=== PATIENT | female | born 1985 | race Caucasian/White ===

== ENCOUNTER 2017-03-24 11:56 | Emergency (ER) | payer OTHER ==
--- NOTE | 2017-03-24 12:18 | UC ---
Respiratory Complaint HPI - HPI Summary HPI Summary: 31 year old female with cough. Headache, bilateral ear pain, "yellow" nasal congestion, PND, "swollen and red" throat, painful swallowing, mostly nonproductive cough, subjective shortness of breath, right upper back "feels hollow and achy", decreased appetite, myalgias, chills, and tired worsening over fifteen days. Patient finished a Z-Gerald for an URI about nine days ago without improvement. No known fever. 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 PCP Elzbieta Gutierrez. [ End ] - History of Current Complaint Stated Complaint: UPPER RESPIRATORY Time Seen by Provider: 03/24/17 12:17 Hx Obtained From: Patient Hx Last Menstrual Period: 04/14/16 Onset/Duration: Gradual Onset Timing: Constant Severity Initially: Mild Severity Currently: Moderate Character: Cough: Productive Associated Signs And Symptoms: Positive: Negative - Risk Factors Pulmonary Embolism Risk Factors: Negative - Allergies/Home Medications Allergies/Adverse Reactions: Allergies Allergy/AdvReac Type Severity Reaction Status Date / Time Amoxicillin Allergy Severe Hives Verified 03/24/17 12:18 Latex Allergy Severe Hives Verified 03/24/17 12:18 Celecoxib [From Celebrex] Allergy Hives Verified 03/24/17 12:18 Cyclobenzaprine Allergy Hives Verified 03/24/17 12:19 [From Flexeril] Home Medications: Home Medications busPIRone TAB* [Buspar TAB*] 10 mg PO TID 03/24/17 [History Confirmed 03/24/17] PMH/Surg Hx/FS Hx/Imm Hx Previously Healthy: Yes - Surgical History Surgical History: None Surgery Procedure, Year, and Place: Spinal block 07/2014 - Family History Known Family History: Positive: None Negative: Blood Disorder - Social History Occupation: Employed Full-time Lives: With Family Alcohol Use: None Substance Use Type: None Smoking Status (MU): Former Smoker Type: Cigarettes Amount Used/How Often: 3 CIGS A DAY Length of Time of Smoking/Using Tobacco: 2 yrs Have You Smoked in the Last Year: Yes When Did the Patient Quit Smoking/Using Tobacco: 04/09 Review of Systems Constitutional: Fatigue ENT: Sore Throat, Ear Ache, Nasal Discharge, Sinus Congestion, Sinus Pain/ Tenderness Respiratory: Shortness Of Breath, Cough All Other Systems Reviewed And Are Negative: Yes Physical Exam Triage Information Reviewed: Yes Appearance: Well-Appearing, No Pain Distress, Well-Nourished Vital Signs Reviewed: Yes Eye Exam: Normal ENT Exam: Normal Dental Exam: Normal Neck exam: Normal Neck: Positive: 1 Respiratory Exam: Normal Respiratory: Positive: Chest non-tender, Lungs clear, Normal breath sounds Cardiovascular Exam: Normal Musculoskeletal Exam: Normal Neurological Exam: Normal Psychological Exam: Normal Skin Exam: Normal Respiratory Course/Dx - Course Course Of Treatment: Since her Sx have worsened the past week will start doxy. STOP SMOKING ! Discussed SE and probiotics as well. RTO if any concerns. - Differential Dx/Diagnosis Differential Diagnosis/HQI/PQRI: Bronchitis, Laryngitis, Lower Resp Infection, Sinusitis Provider Diagnoses: Bronchitis Discharge - Discharge Plan Condition: Good Disposition: HOME Prescriptions: Benzonatate [TESSALON 200 MG CAP] 200 mg PO TID #20 cap Doxycycline Hyclate [Morgidox [id number]] 100 mg PO BID #20 cap Fluconazole [Diflucan 150 MG (NF)] 150 mg PO ONCE #1 tab Patient Education Materials: How to Stop Smoking (ED), Acute Bronchitis (ED) Forms: *Work Release Referrals: Elzbieta Gutierrez MD [Primary Care Provider] - 4 Days
[2017-03-24 12:25] VITALS: BP 118/81
== END 2017-03-24 12:45 | disposition home or self-care (01) ==
LOC: UCCORT 11:56
DX: J40 Bronchitis, not specified as acute or chronic (principal); Z88.1 Allergy status to other antibiotic agents; Z91.040 Latex allergy status; Z88.8 Allergy status to other drugs, medicaments and biological substances; Z87.891 Personal history of nicotine dependence
CPT/HCPCS: 99212; G0463

== ENCOUNTER 2017-10-21 10:59 | Emergency (ER) | payer OTHER ==
[2017-10-21 12:32] VITALS: BP 117/77
--- NOTE | 2017-10-21 12:46 | UC ---
Throat Pain/Nasal Jeremiah HPI - HPI Summary HPI Summary: Patient just urgent care today with her partner. Patient has sores inside her mouth. Also has a sore throat hurts to swallow has been going on and getting worse over the past 3 days - History of Current Complaint Chief Complaint: UCRespiratory Stated Complaint: SORE THROAT Time Seen by Provider: 10/21/17 12:35 Hx Obtained From: Patient Hx Last Menstrual Period: 10/04/17 ?: No Onset/Duration: Sudden Onset, Lasting Days - 3, Still Present Severity: Moderate Pain Intensity: 8 Pain Scale Used: 0-10 Numeric Cough: None Associated Signs & Symptoms: Positive: Negative - Allergies/Home Medications Allergies/Adverse Reactions: Allergies Allergy/AdvReac Type Severity Reaction Status Date / Time amoxicillin Allergy Hives Verified 10/21/17 12:24 celecoxib [From Celebrex] Allergy Hives Verified 10/21/17 12:24 cyclobenzaprine Allergy Hives Verified 10/21/17 12:24 Latex, Natural Rubber Allergy Hives Verified 10/21/17 12:24 Home Medications: Home Medications Meloxicam [Mobic] 15 mg PO DAILY 10/21/17 [History Confirmed 10/21/17] buPROPion TAB* [Wellbutrin TAB*] 100 mg PO BID 10/21/17 [History Confirmed 10/21] PMH/Surg Hx/FS Hx/Imm Hx Previously Healthy: No - chronic pain Psychological History: Anxiety - Surgical History Surgical History: None Surgery Procedure, Year, and Place: Spinal block 07/2014 - Family History Known Family History: Positive: None Negative: Blood Disorder - Social History Occupation: Employed Full-time Lives: With Family Alcohol Use: None Substance Use Type: None Smoking Status (MU): Former Smoker Type: Cigarettes Amount Used/How Often: 3 CIGS A DAY Length of Time of Smoking/Using Tobacco: 2 yrs Have You Smoked in the Last Year: Yes When Did the Patient Quit Smoking/Using Tobacco: 04/09 Household Exposure Type: Cigarettes - Immunization History Most Recent Influenza Vaccination: 03/10/17 Review of Systems Constitutional: Fatigue Skin: Other - scattered red with vesicles Eyes: Negative ENT: Sore Throat Respiratory: Negative Cardiovascular: Negative Gastrointestinal: Negative Genitourinary: Negative Motor: Negative Neurovascular: Negative Musculoskeletal: Negative Neurological: Negative Psychological: Negative Is Patient Immunocompromised?: No All Other Systems Reviewed And Are Negative: Yes Physical Exam Triage Information Reviewed: Yes Appearance: Well-Nourished, Ill-Appearing, Pain Distress Vital Signs: Initial Vital Signs Temp 98 F 10/21/17 12:23 Pulse 102 10/21/17 12:23 Resp 16 10/21/17 12:23 BP 117/77 10/21/17 12:23 Pulse Ox 100 10/21/17 12:23 Vital Signs Reviewed: Yes Eye Exam: Normal Eyes: Positive: Conjunctiva Clear ENT Exam: Normal ENT: Positive: Normal ENT inspection, Hearing grossly normal, Pharyngeal erythema, Uvula midline. Negative: Nasal congestion, Tonsillar swelling, Trismus, Hoarse voice, Dental tenderness, Sinus tenderness, Other - Scattered red vesicular rash on soft palate and back of throat Dental Exam: Normal Neck exam: Normal Neck: Positive: Supple, Nontender, No Lymphadenopathy Respiratory Exam: Normal Respiratory: Positive: Chest non-tender, Lungs clear, Normal breath sounds, No respiratory distress, No accessory muscle use Cardiovascular Exam: Normal Cardiovascular: Positive: RRR, No Murmur, Pulses Normal, Brisk Capillary Refill Musculoskeletal Exam: Normal Musculoskeletal: Positive: Strength Intact, ROM Intact Neurological Exam: Normal Neurological: Positive: Alert, Muscle Tone Normal Psychological Exam: Normal Skin Exam: Normal Throat Pain/Nasal Course/Dx - Course Assessment/Plan: Magic mouthwash, Tylenol ibuprofen for pain off work follow with PCP when necessary - Differential Dx/Diagnosis Provider Diagnoses: Coxsackie viral infection Discharge - Sign-Out/Discharge Documenting (check all that apply): Discharge/Admit/Transfer - Discharge Plan Condition: Stable Disposition: AGAINST MEDICAL ADVICE Prescriptions: Magic Mouth Was-FADY/MAAL/LIDO* 5 ml SWISH SPIT Q4H PRN #200 ml PRN Reason: mouth pain Patient Education Materials: Acetaminophen (By mouth), Hand, Foot, and Mouth Disease (ED) Forms: *Work Release Referrals: Elzbieta Gutierrez MD [Primary Care Provider] - If Needed - Billing Disposition and Condition Condition: STABLE Disposition: [facility]
== END 2017-10-21 13:02 | disposition left against medical advice (07) ==
LOC: UCCORT 10:59
DX: B34.1 Enterovirus infection, unspecified (principal); Z87.891 Personal history of nicotine dependence; Z88.3 Allergy status to other anti-infective agents; Z88.8 Allergy status to other drugs, medicaments and biological substances
CPT/HCPCS: 99212; G0463

== ENCOUNTER 2018-10-16 17:39 | Emergency (ER) | payer OTHER ==
--- OUTSIDE RECORDS SUMMARY | 2018-10-16 19:47 | XMS REPORT | Continuity of Care Document ---
:1985 External Reference #:[id number] Demographics Address [address] [place] [address] Home Phone [phone] Work Phone [phone] Preferred Language en Marital Status or Confucianism Affiliation Unknown Race White Ethnic Group or Author Name Alpesh Cameron Care Team Providers Name Role Phone Elzbieta Gutierrez M.D. Care Team Information Marketing Community Liaison Unavailable Payers Date Identification Numbers Payment Provider Subscriber Expires: 2015 Policy Number: [id number] [facility] Ppo Lizbet Robert Group Name: .. [address] [address] PayID: [id number] [place] [address] Policy Number: [id number] Bradley Lizbet Robert PayID: [id number] [address] [place] [address] Advance Directives Description No Information Available Problems Date Description Provider Status Onset: 01/08/2013 Thyroiditis Elzbieta Gutierrez M.D. Active Onset: 12/06/2013 Lumbar radiculopathy Elzbieta Gutierrez M.D. Active Onset: 01/28/2014 Solitary sacroiliitis Elzbieta Gutierrez M.D. Active Onset: 01/28/2014 Hyperlipidemia Elzbieta Gutierrez M.D. Active Family History Date Family Member(s) Observation Comments General Hypertension General Hyperlipidemia General Heart Disease General Mental Illness General Diabetes Mellitus, II Father Diabetes Mellitus, II Father Chronic Obstructive Pulmonary Disease (COPD) Father Hypertension Father Current Meth user as well Father Sleep Apnea Mother Diabetes Mellitus, II Mother Hypertension Mother Chronic Obstructive Pulmonary Disease (COPD) Mother Hyperthyroidism First Brother Unremarkable First Sister Obesity First Sister Hypertension First Sister Sickle Cell Anemia Social History Type Date Description Comments Sex Unknown Marital Status Has been 1 time Lives With Spouse Lives With Daughter ETOH Use Denies alcohol use Recreational Drug Use Denies Drug Use Tobacco Use Start: Unknown End: Patient is a former smoker Unknown Smoking Status Reviewed: 11/17/17 Patient is a former smoker Currently Active Patient is currently sexually active Allergies, Adverse Reactions, Alerts Date Description Reaction Status Severity Comments 01/08/2013 Amoxicillin Active Hives Medications Medication Date Status Form Strength Qnty SIG Indications Ordering Provider Ibuprofen 02/20 Active Tablets 800mg 60tab take one M54.5 s tablet by Brenda, mouth every 8 M.D. hours as needed with food Clonidine HCL 12/13 Active Tablets 0.1mg 90tab 1 by mouth s every day Huma Gutierrez Vitamin D-3 12/13 Active Tablets 5000Unit 100ta 1 by mouth F32.9 bs every day Huma Gutierrez Tramadol HCL 06/08 Active Tablets 50mg 240ta 2 by mouth M54.5 bs every 6 hours Brenda, as needed M.DRomina pain Levothyroxine 04/07 Active Tablets 50mcg 30tab Take One E03.9 s Tablet By Brenda, Mouth Every M.D. Day Gabapentin 11/24 Active Capsules 300mg 120ca Take One M54.5 ps Capsule By Brenda, Mouth Four M.D. Times A Day Alprazolam Active Tablets 1mg 90tab 1 by mouth 3 F41.1 Elzbieta / s times a day Huma Gutierrez Vitamin C Plus Active Tablets 500-100mg Unknown Echinacea /0000 Sertraline HCL Active Tablets 50mg 30tab Take One Elzbieta / s Tablet By Gauss, Mouth Every M.D. Day Trazodone HCL Active Tablets 50mg 1 or 2 by Unknown /0000 mouth every night at bedtime Azithromycin 03/20 Hx Tablets 250mg 6tabs 2 by mouth J20.9 today, 1 by Gapayal, - mouth day 2 M.D. 04/25 thru Work Note 02/07 Hx May return to F41.1 work without Brenda, - restrictions M.D. 06/14 as 02/07/2018 Acyclovir 10/24 Hx Tablets 400mg 40tab 1 by mouth B97.11 s four times a Gauss, - day M.D. 11/17 Magic Mouth Wash 10/24 Hx mix and use B97.11 15 ml every Gauss, - 2-3 hours as M.D. 11/03 needed for throat pain Prednisone 10/24 Hx Tablets 5mg 7tabs 1 by mouth B97.11 once a day Brenda, - M.D. 11/03 Work Note 08/17 Hx The above is F41.1 excused Brenda, - 08/17-08/19/17 M.D. 10/24 for illness Bupropion HCL ER 04/07 Hx Tablets 150mg 60tab 1 by mouth F41.1 Elzbieta (Smoking Det) ER 12HR s twice a day Brenda, - M.D. 12/13 Azithromycin 03/08 Hx Tablets 250mg 6tabs 2 by mouth Elzbieta today, 1 by Brenda, - mouth day 2 M.D. 04/07 thru Buspirone HCL 10/21 Hx Tablets 7.5mg 90tab 1 by mouth F41.1 Elzbieta s three times a Brenda, - day M.D. 04/25 Azithromycin 08/10 Hx Tablets 500mg 5tabs 1 by mouth J01.90 Elzbieta every day Brenda, - M.D. 09/22 Ciprofloxacin 07/12 Hx Tablets 250mg 14tab 1 by mouth J01.90 Elzbieta s twice a day Brenda, - M.D. 08/10 Chantix 04/12 Hx Tablets 1mg 60tab 1 tab by Z72.0 s mouth twice a Brenda, - day for M.D. 09/22 smoking 2017 cessation Chantix Starting 03/15 Hx Tablets 0.5mg X 30tab as directed Z72.0 Elzbieta Month Gerald 11 & 1 mg s Brenda, - X 42 M.D. 04/12 Gabapentin 11/17 Hx Capsules 100mg 120ca 1 by mouth in M54.5 ps Am, mid day Brenda, - and 2 at M.D. 11/24 bedtime Amitriptyline 09/15 Hx Tablets 50mg 1 po q hs S06.0x0D Elzbieta Brenda, - M.D. 04/07 Baclofen 07/29 Hx Tablets 20mg 90tab Take One M54.5 s Tablet By Brenda, - Mouth Every 8 M.D. 11/03 Hours Needed Vitamin D-3 06/30 Hx Capsules 1000Unit 100ca 1 by mouth E55.9 ps every day Brenda, - M.D. 11/03 Tramadol HCL 05/27 Hx Tablets 50mg 120ta 1 by mouth M54.5 bs every 6 hours Brenda, - as needed M.D. 06/08 pain Baclofen 05/27 Hx Tablets 20mg 90tab 1 po every 8 M54.5 s hours as Brenda, - needed M.D. 07/29 Mobic 05/14 Hx Tablets 15mg 90tab 1 by mouth M54.5 s daily Brenda, - M.D. 04/07 Gabapentin 05/14 Hx Capsules 300mg 90cap take one M54.5 s capsule by Brenda, - mouth three M.D. 11/17 times a day and may have one more dose if needed Naproxen 01/14 Hx Tablets 500mg 100ta 1 by mouth 724.60 Elzbieta bs twice a day Brenda, - as needed M.D. 05/14 Omeprazole 01/14 Hx Capsules 10mg 30cap [address] jose m Gutierrez, - daily with M.D. 05/14 naproxen Celebrex 12/06 Hx Capsules 200mg 60cap 1 by mouth 724.60 Elzbieta s twice a day Brenda, - with food M.D. 12/06 Meloxicam 12/06 Hx Tablets 15mg 90tab 1 by mouth 724.60 Elzbieta s every day Brenda, - M.D. 01/14 Tramadol HCL 12/03 Hx Tablets 50mg 100ta 1 po q 6 724.60 bs hours prn Brenda, - pain M.D. 01/14 Ibuprofen 07/03 Hx Tablets 400mg 100ta 1 tab po Elzbieta bs every 6 hrs Brenda, - as needed M.D. 07/03 Ibuprofen 07/03 Hx Tablets 800mg 90tab 1 po q8 hours 724.60 Elzbieta s prn with food Brenda - M.DRomina 12/06 Cyclobenzaprine 07/03 Hx Tablets 10mg 90tab take one 724.3 s tablet by Brenda, - mouth twice a M.D. Work Note 07/03 Hx excused from work 08/08- Brenda, - 08/12 M.D. 03/08 No Active 01/08 Hx Elzbieta /2012 Brenda - M.DRomina 07/03 Xanax Hx Tablets 0.5mg 1 by mouth 3 Unknown /0000 x daily - 05/27 Celexa Hx Tablets 10mg 90tab tab 1 by F41.1 Elzbieta /0000 s mouth every Brenda, - M.DRomina 04/07 Alprazolam ER 00 Hx Tablets 1mg 30tab 1 by mouth Ezlbieta /0000 ER 24HR s daily Lady Gutierrez M.DRomina 10/21 Zoloft 00/00 Hx Tablets 50mg 1 by mouth Unknown /0000 every night - at bedtime 07/19 Hydroxyzine 00/00 Hx Capsules 25mg Unknown Pamoate /0000 - 04/25 Buspirone HCL 00/00 Hx Tablets 15mg Unknown /0000 - 01/18 Sertraline HCL 00/00 Hx Tablets 50mg Unknown /0000 - 01/18 Buspirone HCL 00/00 Hx Tablets 15mg Unknown /0000 - 06/14 Hydroxyzine 00/00 Hx Capsules 25mg Unknown Pamoate /0000 - 01/18 Medications Administered in Office Medication Date Status Form Strength Qnty SIG Indications Ordering Provider PPD Administered Injection Avelina Canela M.D. PPD Administered Injection Amari Canela M.D. Immunizations CPT Code Status Date Vaccine Lot # [id number] Given 04/07/2017 Influenza Virus (Afluria) Split Virus 3 Years Of [id number] Age And Older [id number] Given 04/12/2016 Influenza Vaccine (Fluvirin) 3 Years Of Age Or [id number] Older Vital Signs Date Vital Result Comment 09/18/2018 3:28pm BP Systolic 132 mmHg BP Diastolic 74 mmHg Height 63 inches 5'3" Weight 199.00 lb BMI (Body Mass Index) 35.2 kg/m2 08/21/2018 3:29pm BP Systolic 150 mmHg BP Diastolic 96 mmHg Heart Rate 91 /min Height 64 inches 5'4" Weight 199.00 lb BMI (Body Mass Index) 34.2 kg/m2 O2 % BldC Oximetry 97 % 07/19/2018 2:09pm BP Systolic 146 mmHg BP Diastolic 92 mmHg Heart Rate 136 /min Height 63 inches 5'3" Weight 199.00 lb BMI (Body Mass Index) 35.2 kg/m2 O2 % BldC Oximetry 98 % 06/14/2018 11:20am BP Systolic 140 mmHg BP Diastolic 96 mmHg Heart Rate 123 /min Height 63 inches 5'3" Weight 199.00 lb BMI (Body Mass Index) 35.2 kg/m2 O2 % BldC Oximetry 97 % 05/23/2018 2:08pm BP Systolic 136 mmHg BP Diastolic 78 mmHg Height 63 inches 5'3" Weight 199.00 lb BMI (Body Mass Index) 35.2 kg/m2 04/25/2018 3:42pm BP Systolic 124 mmHg BP Diastolic 80 mmHg Heart Rate 108 /min Height 63 inches 5'3" O2 % BldC Oximetry 97 % 03/20/2018 1:45pm BP Systolic 110 mmHg BP Diastolic 80 mmHg Heart Rate 107 /min Respiratory Rate 18 /min Height 63 inches 5'3" Weight 196.00 lb BMI (Body Mass Index) 34.7 kg/m2 O2 % BldC Oximetry 98 % 02/20/2018 10:34am BP Systolic 136 mmHg BP Diastolic 88 mmHg Heart Rate 81 /min Respiratory Rate 18 /min Height 63 inches 5'3" Weight 196.00 lb BMI (Body Mass Index) 34.7 kg/m2 O2 % BldC Oximetry 96 % 02/07/2018 3:03pm BP Systolic 128 mmHg BP Diastolic 86 mmHg Heart Rate 62 /min Respiratory Rate 18 /min Height 63 inches 5'3" Weight 196.00 lb BMI (Body Mass Index) 34.7 kg/m2 O2 % BldC Oximetry 94 % 01/18/2018 10:52am BP Systolic 110 mmHg BP Diastolic 78 mmHg Height 63 inches 5'3" Weight 196.00 lb BMI (Body Mass Index) 34.7 kg/m2 12/13/2017 3:01pm BP Systolic 150 mmHg BP Diastolic 100 mmHg BP Systolic Recheck 110 mmHg large cuff BP Diastolic Recheck 70 mmHg large cuff Heart Rate 130 /min Respiratory Rate 18 /min Height 63 inches 5'3" Weight 197.00 lb BMI (Body Mass Index) 34.9 kg/m2 O2 % BldC Oximetry 97 % 11/17/2017 10:50am BP Systolic 144 mmHg BP Diastolic 96 mmHg BP Systolic Recheck 124 mmHg BP Diastolic Recheck 78 mmHg Height 63 inches 5'3" Weight 197.00 lb BMI (Body Mass Index) 34.9 kg/m2 11/03/2017 2:49pm BP Systolic 110 mmHg BP Diastolic 60 mmHg Height 63 inches 5'3" 10/24/2017 3:22pm BP Systolic 128 mmHg BP Diastolic 60 mmHg Heart Rate 97 /min Body Temperature 97.3 F Height 63 inches 5'3" Weight 203.00 lb BMI (Body Mass Index) 36.0 kg/m2 O2 % BldC Oximetry 97 % 10/13/2017 11:53am BP Systolic 164 mmHg BP Diastolic 90 mmHg Height 63.25 inches 5'3.25" Weight 203.00 lb BMI (Body Mass Index) 35.7 kg/m2 09/14/2017 1:23pm BP Systolic 160 mmHg BP Diastolic 98 mmHg BP Systolic Recheck 130 mmHg BP Diastolic Recheck 78 mmHg Height 63.25 inches 5'3.25" Weight 197.00 lb BMI (Body Mass Index) 34.6 kg/m2 08/17/2017 11:52am BP Systolic 128 mmHg BP Diastolic 72 mmHg Height 63.25 inches 5'3.25" Weight 195.00 lb BMI (Body Mass Index) 34.3 kg/m2 08/10/2017 12:25pm BP Systolic 134 mmHg BP Diastolic 70 mmHg Height 63.25 inches 5'3.25" Weight 197.00 lb BMI (Body Mass Index) 34.6 kg/m2 07/11/2017 11:29am BP Systolic 142 mmHg BP Diastolic 60 mmHg Respiratory Rate 18 /min Height 65 inches 5'5" Weight 197.00 lb BMI (Body Mass Index) 32.8 kg/m2 06/08/2017 10:13am BP Systolic 120 mmHg BP Diastolic 60 mmHg Heart Rate 100 /min Respiratory Rate 18 /min 05/09/2017 10:46am BP Systolic 140 mmHg BP Diastolic 86 mmHg 04/07/2017 11:08am BP Systolic 130 mmHg BP Diastolic 88 mmHg 03/08/2017 11:47am BP Systolic 130 mmHg BP Diastolic 86 mmHg 01/25/2017 11:43am BP Systolic 116 mmHg BP Diastolic 80 mmHg 12/30/2016 11:11am BP Systolic 116 mmHg BP Diastolic 68 mmHg 11/25/2016 10:48am BP Systolic 118 mmHg BP Diastolic 70 mmHg 10/21/2016 3:26pm BP Systolic 128 mmHg BP Diastolic 68 mmHg 09/30/2016 10:00am BP Systolic 130 mmHg BP Diastolic 80 mmHg 09/22/2016 10:46am BP Systolic 122 mmHg BP Diastolic 70 mmHg 08/10/2016 10:20am BP Systolic 118 mmHg BP Diastolic 78 mmHg Body Temperature 99.0 F 07/12/2016 3:04pm BP Systolic 130 mmHg BP Diastolic 80 mmHg Height 65 inches 5'5" Weight 180.00 lb BMI (Body Mass Index) 30.0 kg/m2 06/14/2016 1:44pm BP Systolic 132 mmHg BP Diastolic 80 mmHg 05/12/2016 11:21am BP Systolic 122 mmHg BP Diastolic 60 mmHg 04/12/2016 11:43am BP Systolic 130 mmHg BP Diastolic 80 mmHg 03/15/2016 10:57am BP Systolic 112 mmHg BP Diastolic 80 mmHg 02/11/2016 1:39pm BP Systolic 130 mmHg BP Diastolic 90 mmHg Height 65 inches 5'5" Weight 201.00 lb BMI (Body Mass Index) 33.4 kg/m2 01/20/2016 2:43pm BP Systolic 132 mmHg BP Diastolic 80 mmHg 12/09/2015 2:19pm BP Systolic 120 mmHg BP Diastolic 80 mmHg Heart Rate 80 /min Height 65 inches 5'5" Weight 180.00 lb BMI (Body Mass Index) 30.0 kg/m2 11/18/2015 11:00am BP Systolic 122 mmHg BP Diastolic 76 mmHg 10/16/2015 11:21am BP Systolic 118 mmHg BP Diastolic 62 mmHg 09/16/2015 3:10pm BP Systolic 120 mmHg BP Diastolic 80 mmHg 08/25/2015 10:51am BP Systolic 132 mmHg BP Diastolic 78 mmHg 07/29/2015 11:32am BP Systolic 124 mmHg BP Diastolic 70 mmHg 06/30/2015 10:55am BP Systolic 118 mmHg BP Diastolic 80 mmHg 05/27/2015 11:48am BP Systolic 122 mmHg BP Diastolic 60 mmHg 05/14/2015 2:27pm BP Systolic 120 mmHg BP Diastolic 60 mmHg Height 64 inches 5'4" Weight 190.00 lb BMI (Body Mass Index) 32.6 kg/m2 01/28/2014 10:14am BP Systolic 128 mmHg BP Diastolic 80 mmHg 01/14/2014 10:47am BP Systolic 120 mmHg BP Diastolic 86 mmHg 12/06/2013 11:18am BP Systolic 112 mmHg BP Diastolic 70 mmHg 12/03/2013 2:23pm BP Systolic 140 mmHg BP Diastolic 88 mmHg 07/09/2013 11:39am BP Systolic 112 mmHg BP Diastolic 60 mmHg 07/03/2013 11:29am BP Systolic 110 mmHg BP Diastolic 68 mmHg Height 64 inches 5'4" 01/08/2013 2:34pm BP Systolic 132 mmHg BP Diastolic 84 mmHg BP Systolic Recheck 110 mmHg BP Diastolic Recheck 70 mmHg Height 64 inches 5'4" Weight 239.00 lb BMI (Body Mass Index) 41.0 kg/m2 Results Test Date Facility Test Result H/L Range Note Laboratory test 11/07/2017 [facility] Free T4 1.29 ng /dL N 0.76-1.46 [address] [place] [address] [phone] Laboratory test 11/05/2017 [facility] Acetaminophen < 2.0 ug/mL Low 10.0-30.0 2, 3 finding [address] [place] [address] [phone] Ethyl Alcohol 5.0 mg/dL Laboratory test 11/05/2017 [facility] Salicylate 2.4 mg/dL Low 2.8-20.0 4 finding [address] [place] [address] [phone] Comprehensive 11/05/2017 [facility] Glucose 91 mg/dL N 74-106 Metabolic Panel [address] [place] [address] [phone] BUN 9 mg/dL N 7-18 Creatinine 0.8 mg/dL N 0.6-1.3 Glom Filtration Rate, Estimate >60 mL/min >60 If >60 mL/min >60 5 BUN/Creat 11.2 ratio Sodium 139 mmol/L N 136-145 Potassium 3.4 mmol/L Low 3.5-5.1 Chloride 106 mmol/L N 98-107 Carbon Dioxide 26 mmol/L N 21-32 Anion Gap 7 mEq/L Low 8-16 Calcium 8.9 mg/dL N 8.5-10.1 Total Protein 8.6 g/dL High 6.4-8.2 Albumin 4.3 g/dL N 3.4-5.0 Globulin 4.3 g/dL N 1.9-4.3 Alb/Glob 1.0 ratio Bilirubin,Total 0.3 mg/dL N 0.2-1.0 Sgot/Ast 19 U/L N 15-37 SGPT/Alt 37 U/L N 12-78 Alkaline Phosphatase 56 U/L N 45-117 Laboratory test 11/05/2017 [facility] TSH Reflex FT4 6.97 High 0.30-4.[address] and/or FT3 uIU/[place] [address] [phone] LDL Cholesterol 11/05/2017 [facility] Cholesterol 217 mg/dL High <200 [address] [place] [address] [phone] Triglycerides 264 mg/dL High <150 7 HDL Cholesterol 32 mg/dL Low >40 8 LDL-Cholesterol 132 mg/dL < 100 9 Drugs Of 11/05/2017 [facility] Amphetamines POSITIVE Abnormal Abuse-Urine [address] (Urine) Screen 7 [place] [address] [phone] Barbiturates (Urine) Negative Benzodiazepines (Urine) POSITIVE High Cannabinoids (Urine) POSITIVE Abnormal Cocaine Metabolite (Urine) Negative Methadone (Urine) Negative Opiates (Urine) Negative Urine Cutoffs * 10 CBS W/Automated 11/05/2017 [facility] White Blood 10.5 K/uL N 3.1-10.[address] [place] [address] [phone] Red Blood Count 4.85 M/uL N 3.90-5.40 Hemoglobin 14.7 gm/dL N 11.6-15.8 Hematocrit 42.2 % N 36.0-46.1 Mean Cell Volume 87.0 fl N 80.9-99.0 Mean Corpuscular HGB 30.3 pg N 25.9-32.7 Mean Corpuscular HGB Conc 34.8 g/dL High 30.8-34.3 Platelet Count 295 K/uL N 155-360 Red Cell Distri Width SD 39.6 fl N 3-47 Red Cell Distri Width %CV 12.9 % N 11.7-14.4 Mean Platelet Volume 10.6 fL N 8.9-12.4 Neut% 70.5 % N 40.4-72.8 Lymph % 21.8 % N 20.0-42.0 [place] % 6.3 % N 4.3-13.2 Eo% 1.2 % N 0.0-6.6 Bas% 0.2 % N 0.0-1.1 Neut# 7.39 K/uL High 1.8-7.0 Lymph # 2.29 K/uL N 1.0-4.0 [place] # 0.66 K/uL N 0.3-0.9 Eos # 0.13 K/uL N 0.0-0.5 Baso # 0.02 K/uL N 0.0-0.1 Slide Review 11/05/2017 [facility] Slide Review DIFF ORDERED [address] [place], [place] [id number] [phone] Differential-WBC 11/05/2017 [facility] Total Cells 100 #CELLS Confirm [address] [place] [place] [address] [phone] Band% 4 % N 0-8 Neutrophils% 73 % N 33-73 Lymph% 17 % Low 20-42 Atypical Lymph% 2 % N 0-7 Monocyte% 4 % N 0-10 Platelet Estimate NORMAL RBC Morphology NORMAL Laboratory 11/05/2017 [facility] Treponema Negative Negative , 12 test finding [address] [place] [address] [place] [phone] Urine Culture 11/05/2017 [facility] Urine Culture URETHRAL [address] [place], [place] [id number] [phone] Quantity > 100,000 CFU/mL 13 Urinalysis With 11/05/2017 [facility] Urine Color YELLOW Yellow [address] [place], [place] [id number] [phone] Urine Clarity SL CLOUDY Clear Urine Glucose - Dipstick NEGATIVE mg/dL Negative Urine Bilirubin - Dipstick SMALL Abnormal Negative Urine Ketone NEGATIVE mg/dL Negative Urine Specific [place] >=1.030 N 1.010-1.030 Urine Blood TRACE Negative Urine PH 5.5 Low 6.5-7.5 Urine Protein - Dipstick NEGATIVE mg/dL Negative Urine Urobilinogen - Dipstick 0.2 E.U./dL N 0.2-1.0 Urine Nitrite - Dipstick NEGATIVE Negative Urine Leuk Esterase SMALL Abnormal Negative Urine RBC 0-2 rbc/hpf 0-2 Urine WBC 2-5 wbc/hpf 0-7 Urine Epithelial Cells MODERATE /lpf None Seen 15 Urine Bacteria MODERATE Abnormal None Seen Source: URINE, CLEAN CAT <SEE NOTE> 16 Ua RFX Micro & 07/09/2017 [facility] Urine Color YELLOW Yellow 17 Culture II [address] [place] [address] [phone] Urine Clarity SL CLOUDY Clear Urine Glucose - Dipstick NEGATIVE mg/dL Negative Urine Bilirubin - Dipstick NEGATIVE Negative Urine Ketone NEGATIVE mg/dL Negative Urine Specific [place] 1.025 N 1.010-1.030 Urine Blood NEGATIVE Negative Urine PH 6.5 N 6.5-7.5 Urine Protein - Dipstick NEGATIVE mg/dL Negative Urine Urobilinogen - Dipstick 0.2 E.U./dL N 0.2-1.0 Urine Nitrite - Dipstick NEGATIVE Negative Urine Leuk Esterase NEGATIVE Negative Source: URINE, CLEAN CAT <SEE NOTE> 18 Drugs Of 06/02/2017 [facility] Amphetamines Negative 19 Abuse-Urine Screen [address] (Urine) 7 [place] [address] [phone] Barbiturates (Urine) Negative Benzodiazepines (Urine) POSITIVE High Cannabinoids (Urine) POSITIVE Abnormal Cocaine Metabolite (Urine) Negative Methadone (Urine) Negative Opiates (Urine) Negative Urine Cutoffs * 20 Ua RFX Micro & 06/02/2017 [facility] Urine Color YELLOW Yellow Culture II [address] [place] [address] [phone] Urine Clarity CLEAR Clear Urine Glucose - Dipstick NEGATIVE mg/dL Negative Urine Bilirubin - Dipstick NEGATIVE Negative Urine Ketone NEGATIVE mg/dL Negative Urine Specific [place] 1.010 N 1.010-1.030 Urine Blood TRACE Negative Urine PH 7.0 N 6.5-7.5 Urine Protein - Dipstick NEGATIVE mg/dL Negative Urine Urobilinogen - Dipstick 0.2 E.U./dL N 0.2-1.0 Urine Nitrite - Dipstick NEGATIVE Negative Urine Leuk Esterase NEGATIVE Negative Source: URINE, CLEAN CAT <SEE NOTE> 21 Laboratory test 06/02/2017 [facility] Salicylate 2.3 mg/dL Low 2.8-20.0 [address] [place], [place] [id number] [phone] CBS W/Automated 06/02/2017 [facility] White Blood 8.1 K/uL N 3.1-10.[address] [place] [address] [phone] Red Blood Count 5.13 M/uL N 3.90-5.40 Hemoglobin 15.5 gm/dL N 11.6-15.8 Hematocrit 44.2 % N 36.0-46.1 Mean Cell Volume 86.2 fl N 80.9-99.0 Mean Corpuscular HGB 30.2 pg N 25.9-32.7 Mean Corpuscular HGB Conc 35.1 g/dL High 30.8-34.3 Platelet Count 225 K/uL N 150-400 Red Cell Distri Width SD 39.0 fl N 3-47 Red Cell Distri Width %CV 12.8 % N 11.7-14.4 Mean Platelet Volume 11.3 fL N 8.9-12.4 Neut% 76.5 % High 40.4-72.8 Lymph % 15.8 % Low 20.0-42.0 [place] % 5.8 % N 4.3-13.2 Eo% 1.7 % N 0.0-6.6 Bas% 0.2 % N 0.0-1.1 Neut# 6.22 K/uL N 1.8-7.0 Lymph # 1.29 K/uL N 1.0-4.0 [place] # 0.47 K/uL N 0.3-0.9 Eos # 0.14 K/uL N 0.0-0.5 Baso # 0.02 K/uL N 0.0-0.1 Lipid Panel 12/30/2016 [facility] Cholesterol 179 mg/dL 125-[address] [place] [address] [phone] HDL Cholesterol 33 mg/dL Low > Or=46 Cholesterol/HDL Ratio 5.4 High < Or=5.0 LDL Chol,Calculated 100 mg/dL <130 23 Triglycerides 228 mg/dL High <150 Non-HDL Cholesterol 146 mg/dL 24 TSH & T4,Free 12/30/2016 [facility] TSH 9.12 mIU/L High 0.40-4.[address] [place] [address] [phone] T4,Free 0.9 ng/dL 0.8-1.8 Laboratory 12/30/2016 [facility] Vitamin 32 30-100 [address] D,25-Hydroxy,Total,Immunoassay NG/[place] [address] [phone] CBC W/ Diff 12/30/2016 [facility] WBC 10.7 3.8-10. & PLT [address] [place] [address] L [phone] RBC 5.29 mill/L High 3.80-5.10 Hemoglobin 15.8 g/dL High 11.7-15.5 Hematocrit 47.2 % High 35.0-45.0 MCV 89.2 FL 80.0-100.0 MCH 29.8 pg 27.0-33.0 MCHC 33.4 g/dL 32.0-36.0 RDW 14.4 % 11.0-15.0 Platelet Count 293 thous/L 140-400 Platelet Sufficiency PENDING MPV 9.4 FL 7.5-12.5 Neutrophils,Absolute 7790 cells/L [phone] Bands,Absolute PENDING Metamyelocytes,Absolute PENDING Myelocytes,Absolute PENDING Promyelocytes,Absolute PENDING Lymphocytes,Absolute 2290 cells/L 850-3900 Monocytes,Absolute 390 cells/L 200-950 Eosinophils,Absolute 230 cells/L 15-500 Basophils,Absolute 30 cells/L 0-200 Blast Cells,Absolute PENDING Nucleated RBC,Absolute PENDING Total Neutrophils,% 73 % 40-75 Bands,% PENDING Metamyelocytes,% PENDING Myelocytes,% PENDING Promyelocytes,% PENDING Total Lymphocytes,% 21 % 12-47 Monocytes,% 4 % 4-12 Eosinophils,% 2 % 0-4 Basophils,% 0 % 0-1 27 Blasts,% PENDING Nucleated RBC PENDING RBC Morphology PENDING Anisocytosis PENDING Poikilocytosis PENDING Microcytosis PENDING Macrocytosis PENDING Polychromasia PENDING Hypochromasia PENDING Target Cells PENDING Basophilic Stippling PENDING Comment PENDING Basic Metabolic Panel 12/30/2016 [facility] Sodium 139 mmol/L 135-[address] [place] [address] [phone] Potassium 4.2 mmol/L 3.5-5.3 Chloride 106 mmol/L 98-110 Carbon Dioxide 20 mmol/L 20-31 Calcium 9.8 mg/dL 8.6-10.2 Glucose 106 mg/dL High 65-99 28 Urea Nitrogen 19 mg/dL 7-25 Creatinine 0.79 mg/dL 0.50-1.10 BUN/Creatinine Ratio 24.3 High 6-22 Egfr Non-Afr. [place] 100 ML/MIN/1.73M2 > Or=60 Egfr 116 ML/MIN/1.73M2 > Or=60 Laboratory 09/22/2015 [facility] Rapid Strep Negative N Negative 29 test finding [address] [place] [address] [phone] Drug Tox 07/29/2015 [facility] Amphetamines NEGATIVE Qwlzev=405 Monitoring [address] NG/ML Screen,[place] [address] [phone] Barbiturates NEGATIVE NG/ML Fxselk=840 Cocaine NEGATIVE NG/ML Zwmkvn=487 Methadone Metabolite NEGATIVE NG/ML Wjaomt=810 Opiates NEGATIVE NG/ML Gnrina=942 Oxycodone Screen NEGATIVE NG/ML Idpzan=336 CBC W/ Diff & PLT 06/23/2015 [facility] WBC 8.9 thous/L 3.8-10.[address] [place] [address] [phone] RBC 4.96 mill/L 3.80-5.10 Hemoglobin 14.3 g/dL 11.7-15.5 Hematocrit 43.4 % 35.0-45.0 MCV 87.5 FL 80.0-100.0 MCH 28.8 pg 27.0-33.0 MCHC 32.9 g/dL 32.0-36.0 RDW 13.2 % 11.0-15.0 Platelet Count 226 thous/L 140-400 Platelet Sufficiency PENDING MPV 10.6 FL 7.5-11.5 Neutrophils,Absolute 6950 cells/L 4486-5934 Bands,Absolute PENDING Metamyelocytes,Absolute PENDING Myelocytes,Absolute PENDING Promyelocytes,Absolute PENDING Lymphocytes,Absolute 1460 cells/L 850-3900 Monocytes,Absolute 230 cells/L 200-950 Eosinophils,Absolute 220 cells/L 15-500 Basophils,Absolute 20 cells/L 0-200 Blast Cells,Absolute PENDING Nucleated RBC,Absolute PENDING Total Neutrophils,% 78 % High 40-75 Bands,% PENDING Metamyelocytes,% PENDING Myelocytes,% PENDING Promyelocytes,% PENDING Total Lymphocytes,% 16 % 12-47 Monocytes,% 3 % Low 4-12 Eosinophils,% 3 % 0-4 Basophils,% 0 % 0-1 31 Blasts,% PENDING Nucleated RBC PENDING RBC Morphology PENDING Anisocytosis PENDING Poikilocytosis PENDING Microcytosis PENDING Macrocytosis PENDING Polychromasia PENDING Hypochromasia PENDING Target Cells PENDING Basophilic Stippling PENDING Comment PENDING BMP W/O Egfr 06/23/2015 [facility] Sodium 136 mmol/L 135-146 [address] [place] [address] [phone] Potassium 4.0 mmol/L 3.5-5.3 Chloride 103 mmol/L 98-110 Carbon Dioxide 25 mmol/L 19-30 Calcium 9.9 mg/dL 8.6-10.2 Glucose 119 mg/dL High 65-99 32 Urea Nitrogen 12 mg/dL 7-25 Creatinine 0.67 mg/dL 0.50-1.10 BUN/Creatinine Ratio 17.9 6-22 Lipid Panel 06/23/2015 [facility] Cholesterol 194 mg/dL 125-200 [address] [place], [place] [id number] [phone] HDL Cholesterol 28 mg/dL Low > Or=46 Cholesterol/HDL Ratio 6.9 High < Or=5.0 LDL Chol,Calculated 139 mg/dL High <130 33 Triglycerides 136 mg/dL <150 Non-HDL Cholesterol 166 mg/dL High 34 TSH & T4,Free 06/23/2015 [facility] TSH 1.14 mIU/L 0.40-4.[address] [place] [address] [phone] T4,Free 1.0 ng/dL 0.8-1.8 Laboratory 06/23/2015 [facility] Vitamin 19 Low 30-100 [address] D,25-Hydroxy,Total,Immunoassay NG/[place] [address] [phone] Pain MGMT 05/27/2015 [facility] Pain Medication TRAMAD Profile [address] OL W/[place] [address] ion Urine [phone] Pain Medication PENDING Pain Medication PENDING Pain Medication PENDING Pain Medication PENDING Pain Medication PENDING Pain Medication PENDING Pain Medication PENDING Pain Medication PENDING Pain Medication PENDING Amphetamine Class NEGATIVE NG/ML Jjoavu=648 Amphetamine PENDING Methamphetamine PENDING Barbiturate Class NEGATIVE NG/ML Gblptk=548 Amobarbital PENDING Butalbital PENDING Pentobarbital PENDING Phenobarbital PENDING Secobarbital PENDING Benzodiazepine Class POSITIVE NG/ML Abnormal Ftfmqm=642 37 Oxazepam NEGATIVE NG/ML Cutoff=50 Lorazepam NEGATIVE NG/ML Cutoff=50 Hydroxyalprazolam >2000 NG/ML Abnormal Cutoff=25 38 Hydroxymidazolam NEGATIVE NG/ML Cutoff=50 Hydroxytriazolam NEGATIVE NG/ML Cutoff=50 Nordiazepam NEGATIVE NG/ML Cutoff=50 Temazepam NEGATIVE NG/ML Cutoff=50 Aminoclonazepam NEGATIVE NG/ML Cutoff=25 Hydroxyethylflurazepam NEGATIVE NG/ML Cutoff=50 Cannabinoids Class NEGATIVE NG/ML Cutoff=20 Carboxy THC PENDING Cocaine Class NEGATIVE NG/ML Negfhp=671 Cocaine MTB PENDING Methadone Metabolite Class NEGATIVE NG/ML Lvxrjo=694 Methadone PENDING Methadone Metabolite PENDING Opiate Screen NEGATIVE NG/ML Yythur=084 Codeine PENDING Morphine PENDING Hydrocodone PENDING Hydromorphone PENDING Norhydrocodone PENDING Oxycodone Screen NEGATIVE NG/ML Adumhk=522 Oxycodone PENDING Oxymorphone PENDING Noroxycodone PENDING Phencyclidine Class NEGATIVE NG/ML Cutoff=25 Phencyclidine PENDING Creatinine 213.8 mg/dL >/=20 Specific [place] 1.029 >/=1.003 PH 5.39 4.5-8.9 General Oxidants NEGATIVE g/mL Jvwbje=346 Comments PENDING Ledy Gibbs 06/14/2014 [employer] Ebv Capsid Positive N Negative Comprehensive [address] [place] [address] [phone] Ebv Capsid Ag IgM Ab Negative N Negative [facility] Nuclear Antigen Positive N Negative [facility]-Gib[facility] Virus Interp See Comment N 39 Laboratory test 06/14/2014 [employer] Monospot Negative N Negative [address] [place] [address] [phone] Celiac Disease 01/15/2013 [facility] Immunoglobulin A 259 mg/dL 91-414 Comp AB Profile [address] [place] [address] [phone] Antigliadin Abs, IgG 6 units 0-19 41 Antigliadin Abs, IgA 3 units 0-19 42 Endomysial IgA Antibody Negative Negative t-Transglutaminase IgA <2 U/mL 0-3 43 t-Transglutaminase IgG 2 U/mL 0-5 44 Laboratory test 01/15/2013 [facility] Thyroid Stim 3.66 uIU/mL 0.49-4.[address] [place] [address] [phone] Free T4 1.00 ng/dL 0.71-1.85 Laboratory test 01/15/2013 [facility] Direct LDL 110 mg/dL High 0-[address] [place] [address] [phone] Basic Metabolic 01/15/2013 [facility] Glucose 96 mg/ dL 76-[address] [place] [address] [phone] BUN 13 mg/dL 5-23 Creatinine 0.8 mg/dL 0.5-1.4 Glom Filtration Rate, Estimate >60 mL/min >60 If >60 mL/min >60 45 BUN/Creat 16.2 ratio Sodium 139 mmol/L 136-145 Potassium 4.3 mmol/L 3.5-5.1 Chloride 105 mmol/L 98-107 Carbon Dioxide 24 mEq/L 18-29 Anion Gap 14 mEq/L 8-16 Calcium 8.9 mg/dL 8.5-10.1 CBC W/ Diff & 01/15/2013 [facility] White Blood 8.3 K /uL 3.1-10.[address] [place] [address] [phone] Red Blood Count 4.84 M/uL 3.90-5.40 Hemoglobin 14.0 gm/dL 11.6-15.8 Hematocrit 40.9 % 36.0-46.1 Mean Cell Volume 84.5 fl 80.9-99.0 Mean Corpuscular HGB 28.9 pg 25.9-32.7 Mean Corpuscular HGB Conc 34.2 g/dL 30.8-34.3 Platelet Count 269 K/uL 155-360 Red Cell Distri Width SD 39.6 fl 3-47 Red Cell Distri Width %CV 13.0 % 11.7-14.4 Mean Platelet Volume 11.5 fL 8.9-12.4 Neut% 61.7 % 40.4-72.8 Lymph % 29.0 % 17.0-46.1 [place] % 6.1 % 4.3-13.2 Eo% 2.8 % 0.0-6.6 Bas% 0.4 % 0.0-1.1 Neut# 5.13 K/uL 1.0-7.0 Lymph # 2.41 K/uL 0.8-3.4 [place] # 0.51 K/uL 0.3-0.9 Eos # 0.23 K/uL 0.0-0.5 Baso # 0.03 K/uL 0.0-0.1 1 [facility] 2 EVAL, CUT R WRIST 3 Acetaminophen concentration >150 ug/mL at four hours after ingestion and 50.0 ug/mL at twelve hours after ingestion are often associated with toxic reactions. 4 THERAPEUTIC RANGE: 15-30 mg/dL POTENTIAL TOXICITY VARIES WITH TIME FROM INGESTION. PLEASE CONSULT APPROPRIATE NOMOGRAM. 5 Note: Persistent reduction for 3 months or more in an eGFR <60 mL/min/1.73 m2 defines CKD. Patients with eGFR values >/=60 mL/min/1.73 m2 may also have CKD if evidence of persistent proteinuria is present. The original MDRD equation for estimated GFR is not valid for patients less than 18 years of age. Additional information may be found at www.kdoqi.org. 6 Reference Guidelines*: Desirable: ........... < 200 mg/dL Borderline High: ..... 200-239 mg/dL High: ................ >=240 mg/dL * The National Cholesterol Education Program (NCEP) 7 Reference Guidelines*: Normal: ............. < 150 mg/dL Borderline High: .... 150-199 mg/dL High: ............... 200-499 mg/dL Very High: .......... > 500 mg/dL * Source: National Cholesterol Education Program (NCEP) 8 Reference Guidelines*: Low HDL: ..... < 40 mg/dL Normal: ..... 40-60 mg/dL Desirable: ... > 60 mg/dL *The National Cholesterol Education Program(NCEP) 9 Reference Guidelines*: Optimal:........... <100 mg/dL Near Optimal....... 100-129 mg/dL Borderline High.... 130-159 mg/dL High............... 160-189 mg/dL Very High.......... >=190 mg/dL * Source: National Cholesterol Education Program (NCEP) 10 URINE SPECIMENS ARE SCREENED AT THE LISTED CUTOFFS DRUG CLASS INITIAL TEST LEVEL Amphetamines 1000 ng/mL Barbiturates 200 ng/mL Benzodiazepines 200 ng/mL Cannabinoids 50 ng/mL Cocaine Metabolite 300 ng/mL Methadone 300 ng/mL Opiates 300 ng/mL Any PRESUMPTIVE POSITIVE findings are UNCONFIRMED. Confirmatory testing is suggested if findings are unexpected. Please contact laboratory if confirmatory testing is desired. SPECIMENS ARE HELD FOR 72 HOURS. 11 PSYCH SERVICES 12 Performed at: - [address] [id number] Sand Digger: Boston Moulton MD, Phone: [phone] 13 > 100,000 CFU/mL 14 EVAL, CUT R WRIST 15 POSSIBLE UROGENITAL CONTAMINATION. 16 URINE, CLEAN CATCH 17 SEVERE BACK PAIN 18 URINE, CLEAN CATCH 19 EVAL 20 URINE SPECIMENS ARE SCREENED AT THE LISTED CUTOFFS DRUG CLASS INITIAL TEST LEVEL Amphetamines 1000 ng/mL Barbiturates 200 ng/mL Benzodiazepines 200 ng/mL Cannabinoids 50 ng/mL Cocaine Metabolite 300 ng/mL Methadone 300 ng/mL Opiates 300 ng/mL Any PRESUMPTIVE POSITIVE findings are UNCONFIRMED. Confirmatory testing is suggested if findings are unexpected. Please contact laboratory if confirmatory testing is desired. SPECIMENS ARE HELD FOR 72 HOURS. 21 URINE, CLEAN CATCH 22 THERAPEUTIC RANGE: 15-30 mg/dL POTENTIAL TOXICITY VARIES WITH TIME FROM INGESTION. PLEASE CONSULT APPROPRIATE NOMOGRAM. 23 LDL-CHOLESTEROL RISK CATEGORY* GOAL VERY HIGH (E.G. DIABETES + CVD) <70 MG/DL HIGH (DIABETICS; CHD RISK EQUIVALENTS) <100 MG/DL MODERATELY HIGH (MULTIPLE(2+) RISK FACTORS) <130 MG/DL 0 TO 1 RISK FACTORS <160 MG/DL * NCEP REPORT. CIRCULATION 2004; 110: 227-239 24 Target for non-HDL cholesterol is 30 mg/dL higher than LDL cholesterol target. 25 REFERENCE RANGES BELOW ARE APPLICABLE TO FEMALES FIRST TRIMESTER - 0.26 - 2.66 mIU/L SECOND TRIMESTER - 0.55 - 2.73 mIU/L THIRD TRIMESTER - 0.43 - 2.91 mIU/L 26 Vitamin D Status 25-OH Vitamin D: Deficiency: <20 ng/mL Insufficiency: 20-29 ng/mL Optimal: > or=30 ng/mL For 25-OH Vitamin D testing on patients on D2-supplementation and patients for whom quantitation of D2 and D3 fractions is required, the [facility] 25-OH Vit D, (D2,D3),LC/MS/MS is recommended: Order code 73009 (patients >2 yrs). 27 Relative blood cell counts (%) should be compared with absolute cell counts (cells/mcL). Relative counts may not be clinically meaningful if the absolute count of one or more cell type is decreased. Reference ranges for relative cell counts derived from: A Manual of Laboratory and Diagnostics Tests, 9th Ed, [employer], 2015. Pediatric Reference Intervals, 7th Ed, [facility] [employer], 2011. 28 GLUCOSE REFERENCE RANGE BASED ON FASTING SPECIMEN. 29 Plant Operations Worker: [id number] VINAY YEE Due to the increased sensitivity of molecular testing, reflex cultures are no longer performed. 30 FASTING 31 Relative blood cell counts (%) should be compared with absolute cell counts (cells/mcL). Relative counts may not be clinically meaningful if the absolute count of one or more cell type is decreased. Reference ranges for relative cell counts derived from: A Manual of Laboratory and Diagnostics Tests, 9th Ed, [employer], 2015. Pediatric Reference Intervals, 7th Ed, [facility] [employer], 2011. 32 GLUCOSE REFERENCE RANGE BASED ON FASTING SPECIMEN. 33 LDL-CHOLESTEROL RISK CATEGORY* GOAL VERY HIGH (E.G. DIABETES + CVD) <70 MG/DL HIGH (DIABETICS; CHD RISK EQUIVALENTS) <100 MG/DL MODERATELY HIGH (MULTIPLE(2+) RISK FACTORS) <130 MG/DL 0 TO 1 RISK FACTORS <160 MG/DL * NCEP REPORT. CIRCULATION 2004; 110: 227-239 34 Target for non-HDL cholesterol is 30 mg/dL higher than LDL cholesterol target. 35 REFERENCE RANGES BELOW ARE APPLICABLE TO FEMALES FIRST TRIMESTER - 0.26 - 2.66 mIU/L SECOND TRIMESTER - 0.55 - 2.73 mIU/L THIRD TRIMESTER - 0.43 - 2.91 mIU/L 36 Vitamin D Status 25-OH Vitamin D: Deficiency: <20 ng/mL Insufficiency: 20-29 ng/mL Optimal: > or=30 ng/mL For 25-OH Vitamin D testing on patients on D2-supplementation and patients for whom quantitation of D2 and D3 fractions is required, the [facility] 25-OH Vit D, (D2,D3),LC/MS/MS is recommended: Order code [id number] (patients >2 yrs). 37 Inconsistent Results 38 Inconsistent Results 39 RESULT: Results suggest past infection. ADDITIONAL INFORMATION In most populations, at least 90% of the adult population will have been infected with EBV sometime in the past and therefore, will be positive for anti-VCA/IgG and anti- EBNA. Antibodies to EBNA develop 6-8 weeks after primary infection and remain present for life. Presence of VCA/ IgM antibodies indicates recent primary infection with EBV. Test Performed by: [address] [address] Fur Trimmer: Danie Cummins M.D. 40 Y 41 Negative 0 - 19 Weak Positive 20 - 30 Moderate to Strong Positive >30 42 Negative 0 - 19 Weak Positive 20 - 30 Moderate to Strong Positive >30 43 Negative 0 - 3 Weak Positive 4 - 10 Positive >10 Tissue Transglutaminase (tTG) has been identified as the endomysial antigen. Studies have demonstr- ated that endomysial IgA antibodies have over 99% specificity for gluten sensitive enteropathy. 44 Negative 0 - 5 Weak Positive 6 - 9 Positive >9 Performed at: RN - [facility] [address] [id number] Sand Digger: Ashley Hammond MD, Phone: [phone] 45 Note: Persistent reduction for 3 months or more in an eGFR <60 mL/min/1.73 m2 defines CKD. Patients with eGFR values >/=60 mL/min/1.73 m2 may also have CKD if evidence of persistent proteinuria is present. The original MDRD equation for estimated GFR is not valid for patients less than 18 years of age. Additional information may be found at www.kdoqi.org. Procedures Description No Information Available Encounters Type Date Location Provider Dx Diagnosis Office Visit 08/21/2018 3:15p Main Office Elzbieta Gutierrez M.D. M54.5 Low back pain F41.1 Generalized anxiety disorder Office Visit 07/19/2018 2:00p Main Office Elzbieta Gutierrez F41.1 Generalized anxiety M.D. disorder M54.5 Low back pain Z79.891 half-way (current) use of opiate analgesic Office Visit 06/14/2018 11:15a Main Office Elzbieta Gutierrez F41.1 Generalized anxiety M.D. disorder M54.5 Low back pain Z79.891 half-way (current) use of opiate analgesic Office Visit 05/23/2018 2:30p Main Office Elzbieta Gutierrez M.D. M54.5 Low back pain F41.1 Generalized anxiety disorder Office Visit 04/25/2018 3:30p Main Office Elzbieta Gutierrez M54.5 Low back pain M.D. Office Visit 03/20/2018 1:45p Main Office Elzbieta Gutierrez F41.1 Generalized anxiety M.D. disorder M54.5 Low back pain J20.9 Acute bronchitis, unspecified Office Visit 02/20/2018 2:45p Main Office Elzbieta Gutierrez F41.1 Generalized anxiety M.D. disorder M54.5 Low back pain Office Visit 01/18/2018 10:45a Main Office Elzbieta Gutierrez F41.1 Generalized anxiety M.D. disorder F32.9 Major depressive disorder, single episode, unspecified M54.5 Low back pain Office Visit 12/13/2017 3:15p Main Office Elzbieta Gutierrez F41.1 Generalized anxiety M.D. disorder F32.9 Major depressive disorder, single episode, unspecified I11.9 Hypertensive heart disease without heart failure Office Visit 11/17/2017 10:45a Main Office Elzbieta Gutierrez F41.1 Generalized anxiety M.D. disorder M54.5 Low back pain I11.9 Hypertensive heart disease without heart failure Office Visit 11/03/2017 2:30p Main Office Elzbieta Gutierrez B97.11 Coxsackievirus as the M.D. cause of diseases classified elsewhere J02.9 Acute pharyngitis, unspecified Office Visit 10/24/2017 3:30p Main Office Shea Canela97.11 Coxsackievirus as the M.D. cause of diseases classified elsewhere J02.9 Acute pharyngitis, unspecified Office Visit 10/13/2017 11:45a Main Office Elzbieta Gutierrez F41.1 Generalized anxiety M.D. disorder M54.5 Low back pain Office Visit 09/14/2017 1:30p Main Office Elzbieta Gtuierrez F41.1 Generalized anxiety M.D. disorder M54.5 Low back pain E03.9 Hypothyroidism, unspecified Office Visit 08/17/2017 11:15a Main Office Elzbieta Gutierrez F41.1 Generalized anxiety M.D. disorder M54.5 Low back pain Office Visit 08/10/2017 11:45a Main Office Elzbieta Gutierrez M.D. M54.5 Low back pain F41.1 Generalized anxiety disorder Office Visit 07/11/2017 11:30a Main Office Elzbieta Gutierrez M.D. M54.5 Low back pain F41.1 Generalized anxiety disorder Office Visit 06/08/2017 10:15a Main Office Elzbieta Gutierrez M.D. M54.5 Low back pain F41.1 Generalized anxiety disorder E03.9 Hypothyroidism, unspecified Office Visit 05/09/2017 10:45a Main Office Elzbieta Gutierrez F41.1 Generalized anxiety M.D. disorder E03.9 Hypothyroidism, unspecified M54.5 Low back pain Office Visit 04/07/2017 11:00a Main Office Elzbieta Gutierrez F41.1 Generalized anxiety M.D. disorder E03.9 Hypothyroidism, unspecified M54.5 Low back pain Z23 Encounter for immunization Office Visit 03/08/2017 11:45a Main Office Elzbieta Gutierrez F41.1 Generalized anxiety M.D. disorder M54.5 Low back pain H66.93 Otitis media, unspecified, bilateral Office Visit 01/25/2017 11:30a Main Office Elzbieta Gutierrez F41.1 Generalized anxiety M.D. disorder M54.5 Low back pain E03.9 Hypothyroidism, unspecified Z23 Encounter for immunization Office Visit 12/30/2016 11:15a Main Office Elzbieta Gutierrez F41.1 Generalized anxiety M.D. disorder M54.5 Low back pain N91.1 Secondary amenorrhea Office Visit 11/25/2016 10:30a Main Office Elzbieta Gutierrez F41.1 Generalized anxiety M.D. 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 disorder Office Visit 09/22/2016 10:45a Main Office Mercy Canela4.5 Low back pain M.D. F41.1 Generalized anxiety disorder Office Visit 08/10/2016 10:15a Main Office Elzbieta Gutierrez J01.90 Acute sinusitis, M.D. unspecified M54.5 Low back pain Office Visit 06/14/2016 1:30p Main Office Elzbieta Gutierrez M.D. M54.5 Low back pain F41.1 Generalized anxiety disorder S93.401A Sprain of unspecified ligament of right ankle, init encntr Office Visit 05/12/2016 11:00a Main Office Elzbieta Gutierrez M.D. M54.5 Low back pain F41.1 Generalized anxiety disorder Office Visit 04/12/2016 11:15a Main Office Elzbieta Gutierrez M.D. Z72.0 Tobacco use M54.5 Low back pain Z23 Encounter for immunization Office Visit 03/15/2016 10:45a Main Office Elzbieta Gutierrez M.D. Z72.0 Tobacco use M54.5 Low back pain F41.1 Generalized anxiety disorder Office Visit 02/11/2016 1:30p Main Office Elzbieta Gutierrez Z01.419 Encntr for obstetrics gyn M.D. exam (general) (routine) w/o abn findings M54.5 Low back pain Office Visit 01/20/2016 2:00p Main Office Mercy Canela4.5 Low back pain M.D. Office Visit 12/09/2015 2:15p Main Office Elzbieta Gutierrez Z02.1 Encounter for M.D. pre-employment examination Z23 Encounter for immunization M54.5 Low back pain Office Visit 10/16/2015 11:00a Main Office Elzbieta Gutierrez M.D. 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 loss of consciousness, subs encntr M54.5 Low back pain M54.16 Radiculopathy, lumbar region Office Visit 07/29/2015 11:00a Main Office Elzbieta Gutierrez M.D. M54.5 Low back pain M54.16 Radiculopathy, lumbar region Office Visit 06/30/2015 11:00a Main Office Elzbieta Gutierrez M.D. M54.5 Low back pain M54.16 Radiculopathy, lumbar region R63.4 Abnormal weight loss R73.01 Impaired fasting glucose E55.9 Vitamin D deficiency, unspecified Office Visit 05/27/2015 11:30a Main Office Elzbieta Gutierrez M.D. M54.5 Low back pain M54.16 Radiculopathy, lumbar region Office Visit 05/14/2015 2:45p Main Office Elzbieta Gutierrez M.D. M54.5 Low back pain S06.0x0D Concussion without loss of consciousness, subs encntr Office Visit 01/28/2014 10:15a Main Office Elzbieta Gutierrez M.D. 724.60 Lumbar Disc Disease 720.2 Sacroiliitis Not Elsewhere Classified 245.9 Thyroiditis Unspec Office Visit 01/14/2014 10:15a Main Office Elzbieta Gutierrez M.D. 724.60 Lumbar Disc Disease 720.2 Sacroiliitis Not Elsewhere Classified Office Visit 12/06/2013 10:45a Main Office Elzbieta Gutierrez M.D. 724.60 Lumbar Disc Disease Office Visit 12/03/2013 2:30p Main Office Elzbieta Gutierrez M.D. 724.3 Sciatica 724.60 Lumbar Disc Disease Office Visit 07/09/2013 11:15a Main Office Elzbieta Gutierrez M.D. 724.3 Sciatica Office Visit 07/03/2013 11:15a Main Office Elzbieta Gutierrez M.D. 724.3 Sciatica Office Visit 01/30/2013 2:00p Main Office Elzbieta Gutierrez M.D. 245.9 Thyroiditis Unspec 272.4 Hyperlipidemia Other Unspec Office Visit 01/08/2013 2:30p Main Office Elzbieta Gutierrez M.D. 245.9 Thyroiditis Unspec Plan of Treatment 08/21/2018 - Elzbieta Gutierrez M.D.M54.5 Low back painComments:remains on tramadol 100 mg every 6 hours, controlled substance contract signed [facility] (Follow up)F41.1 Generalized anxiety disorderComments:alprazolam filled for 1 month
--- OUTSIDE RECORDS SUMMARY | 2018-10-16 19:47 | XMS REPORT | Continuity of Care Document ---
:1985 External Reference #:[id number] Demographics Address [address] [place] [address] Home Phone [phone] Work Phone [phone] Preferred Language en Marital Status or Rastafarian Affiliation Unknown Race White Ethnic Group or Author Name Linh Bueno Care Team Providers Name Role Phone Elzbieta Gutierrez M.D. 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 [address] [address] PayID: [id number] [place] [address] Policy Number: [id number] [place] Lizbet Robert PayID: [id number] [address] [place] [address] Advance Directives Description No Information Available Problems [...] 60tab take one M54.5 s tablet by Brenda mouth every 8 M.D. hours as needed [...] 30tab Take One E03.9 s Tablet By Brenda Mouth Every M.D. Day Gabapentin 11/24 Active Capsules 300mg 120ca Take One M54.5 ps Capsule By Brenda Mouth Four M.D. Times A Day Alprazolam Active Tablets 1mg 90tab 1 by mouth 3 F41.1 Elzbieta / s times a day Huma Gutierrez Vitamin C Plus Active Tablets 500-100mg Unknown Echinacea /0000 Sertraline HCL Active Tablets 50mg 30tab Take One Elzbieta / s Tablet By Brenda, Mouth Every M.D. Day Trazodone HCL Active Tablets 50mg 1 or 2 by Unknown /0000 mouth every night at bedtime Azithromycin 03/20 Hx Tablets 250mg 6tabs 2 by mouth J20.9 today, 1 by Brenda, - mouth day 2 M.D. 04/25 thru Work Note 02/07 Hx May return to F41.1 work without Brenda, - restrictions M.D. 06/14 as 02/07/2018 Acyclovir 10/24 Hx Tablets 400mg 40tab 1 by mouth B97.11 s four times a Brenda, - day M.D. 11/17 Magic Mouth Wash 10/24 Hx mix and use B97.11 15 ml every Gauss, - 2-3 hours as M.D. 11/03 needed for throat pain Prednisone 10/24 Hx Tablets 5mg 7tabs 1 by mouth B97.11 once a day Brenda, - M.DRomina 11/03 Work Note 08/17 Hx The above [...] Brenda, - day for M.D. 09/22 smoking cessation Chantix Starting 03/15 Hx Tablets 0.5mg [...] Tablets 50mg 120ta 1 by mouth M54.5 /2014 bs every 6 hours Brenda, - as [...] mouth three M.D. 11/17 times a day /2015 and may have one more dose if [...] 50mg 100ta 1 po q 6 724.60 Elzbieta bs hours prn Brenda, - pain M.D. 01/14 Ibuprofen 07/03 Hx Tablets 400mg 100ta 1 tab po Elzbieta bs every 6 hrs Brenda, - as needed M.D. 07/03 Ibuprofen 07/03 Hx Tablets 800mg 90tab 1 po q8 hours 724.60 Elzbieta s prn with food Brenda - M.DRomina 12/06 Cyclobenzaprine 07/03 Hx Tablets 10mg 90tab take one 724.3 Elzbieta s tablet by Brenda, - mouth twice a M.D. Work Note 07/03 Hx excused from work 08/08- Brenda, - 08/12 M.DRomina 03/08 No Active 01/08 Hx Elzbieta Brenda, - M.DRomina 07/03 Xanax Hx Tablets 0.5mg 1 by mouth 3 Unknown /0000 x daily - 05/27 Celexa Hx Tablets 10mg 90tab tab 1 by F41.1 Elzbieta /0000 s mouth every Brenda, - M.DRomina 04/07 Alprazolam ER 00 Hx Tablets 1mg 30tab 1 by mouth Elzbieta /0000 ER 24HR s daily Lady Gutierrez MRominaDRomina 10/21 Zoloft 00/00 Hx Tablets 50mg 1 [...] Injection Avelina Canela M.D. PPD Administered Injection Elzbieta Gutierrez 6 Huma Immunizations CPT Code Status Date Vaccine Lot # [id number] Given 04/07/2017 Influenza Virus (Afluria) Split Virus 3 Years Of [id number] Age And Older [id number] Given 04/12/2016 Influenza Vaccine (Fluvirin) 3 Years Of Age Or [id number] Older Vital Signs Date Vital Result Comment [...] Result H/L Range Note Laboratory test 11/07/2017 [facility] Free T4 1.29 ng /dL N 0.76-1.46 [address] [place] [address] [phone] Laboratory test 11/05/2017 [facility] Acetaminophen < 2.0 ug/mL Low 10.0-30.0 2, [address] [place] [address] [phone] Ethyl Alcohol 5.0 mg/dL Laboratory test 11/05/2017 [facility] Salicylate 2.4 mg/dL Low 2.8-20.0 [address] [place] [address] [phone] Comprehensive 11/05/2017 [facility] Glucose 91 mg/dL N 74-106 Metabolic Panel [address] [place] [address] [phone] BUN 9 mg/dL N 7-18 Creatinine 0.8 [...] 56 U/L N 45-117 Laboratory test 11/05/2017 [facility] TSH Reflex FT4 6.97 High 0.30-4.[address] and/or FT3 uIU/mL [place] [id number] [phone] LDL Cholesterol 11/05/2017 [facility] Cholesterol 217 mg/dL High <200 [address] [place] [address] [phone] Triglycerides 264 mg/dL High <150 7 HDL Cholesterol 32 mg/dL Low >40 8 LDL-Cholesterol 132 mg/dL < 100 9 Drugs Of 11/05/2017 [facility] Amphetamines POSITIVE Abnormal Abuse-Urine [address] (Urine) Screen 7 [place] [address] [phone] Barbiturates (Urine) Negative Benzodiazepines (Urine) POSITIVE High Cannabinoids (Urine) POSITIVE Abnormal Cocaine Metabolite (Urine) Negative Methadone (Urine) Negative Opiates (Urine) Negative Urine Cutoffs * 10 CBS W/Automated 11/05/2017 [facility] White Blood 10.5 K/uL N 3.1-10.[address] [place] [address] [phone] Red Blood Count 4.85 M/uL N 3.90-5.40 [...] 40.4-72.8 Lymph % 21.8 % N 20.0-42.0 Twiggs % 6.3 % N 4.3-13.2 Eo% 1.2 % N 0.0-6.6 Bas% 0.2 % N 0.0-1.1 Neut# 7.39 K/uL High 1.8-7.0 Lymph # 2.29 K/uL N 1.0-4.0 Twiggs # 0.66 K/uL N 0.3-0.9 Eos # 0.13 K/uL N 0.0-0.5 Baso # 0.02 K/uL N 0.0-0.1 Slide Review 11/05/2017 [facility] Slide Review DIFF ORDERED [address] [place], [place] [id number] [phone] Differential-WBC 11/05/2017 [facility] Total Cells 100 #CELLS Confirm [address] Counted [place], [place] [id number] [phone] Band% 4 % N 0-8 Neutrophils% 73 % N 33-73 Lymph% 17 % Low 20-42 Atypical Lymph% 2 % N 0-7 Monocyte% 4 % N 0-10 Platelet Estimate NORMAL RBC Morphology NORMAL Laboratory 11/05/2017 [facility] Treponema Negative Negative , 12 test finding [address] [place] [address] [place] [phone] Urine Culture 11/05/2017 [facility] Urine Culture URETHRAL [address] JOSE[place], [place] [id number] [phone] Quantity > 100,000 CFU/mL 13 Urinalysis With 11/05/2017 [facility] Urine Color YELLOW Yellow [address] [place], [place] [address] [phone] Urine Clarity SL CLOUDY Clear Urine Glucose - Dipstick NEGATIVE mg/dL Negative Urine Bilirubin - Dipstick SMALL Abnormal Negative Urine Ketone NEGATIVE mg/dL Negative Urine Specific [place] >=1.030 N 1.010-1.030 Urine Blood TRACE Negative [...] NOTE> 16 Ua RFX Micro & 07/09/2017 [facility] Urine Color YELLOW Yellow 17 Culture II [address] [place] [address] [phone] Urine Clarity SL CLOUDY Clear Urine Glucose - Dipstick NEGATIVE mg/dL Negative Urine Bilirubin - Dipstick NEGATIVE Negative Urine Ketone NEGATIVE mg/dL Negative Urine Specific [place] 1.025 N 1.010-1.030 Urine Blood NEGATIVE Negative Urine PH 6.5 N 6.5-7.5 Urine Protein - Dipstick NEGATIVE mg/dL Negative Urine Urobilinogen - Dipstick 0.2 E.U./dL N 0.2-1.0 Urine Nitrite - Dipstick NEGATIVE Negative Urine Leuk Esterase NEGATIVE Negative Source: URINE, CLEAN CAT <SEE NOTE> 18 Drugs Of 06/02/2017 [facility] Amphetamines Negative 19 Abuse-Urine Screen [address] (Urine) 7 [place] [address] [phone] Barbiturates (Urine) Negative Benzodiazepines (Urine) POSITIVE High Cannabinoids (Urine) POSITIVE Abnormal Cocaine Metabolite (Urine) Negative Methadone (Urine) Negative Opiates (Urine) Negative Urine Cutoffs * 20 Ua RFX Micro & 06/02/2017 [facility] Urine Color YELLOW Yellow Culture II [address] [place] [address] [phone] Urine Clarity CLEAR Clear Urine Glucose - Dipstick NEGATIVE mg/dL Negative Urine Bilirubin - Dipstick NEGATIVE Negative Urine Ketone NEGATIVE mg/dL Negative Urine Specific [place] 1.010 N 1.010-1.030 Urine Blood TRACE Negative Urine PH 7.0 N 6.5-7.5 Urine Protein - Dipstick NEGATIVE mg/dL Negative Urine Urobilinogen - Dipstick 0.2 E.U./dL N 0.2-1.0 Urine Nitrite - Dipstick NEGATIVE Negative Urine Leuk Esterase NEGATIVE Negative Source: URINE, CLEAN CAT <SEE NOTE> 21 Laboratory test 06/02/2017 [facility] Salicylate 2.3 mg/dL Low 2.8-20.0 [address] [place], [place] [id number] [phone] CBS W/Automated 06/02/2017 [facility] White Blood 8.1 K/uL N 3.1-10.[address] [place] [address] [phone] Red Blood Count 5.13 M/uL N 3.90-5.40 [...] 40.4-72.8 Lymph % 15.8 % Low 20.0-42.0 Twiggs % 5.8 % N 4.3-13.2 Eo% 1.7 % N 0.0-6.6 Bas% 0.2 % N 0.0-1.1 Neut# 6.22 K/uL N 1.8-7.0 Lymph # 1.29 K/uL N 1.0-4.0 Twiggs # 0.47 K/uL N 0.3-0.9 Eos # 0.14 K/uL N 0.0-0.5 Baso # 0.02 K/uL N 0.0-0.1 Lipid Panel 12/30/2016 [facility] Cholesterol 179 mg/dL 125-[address] [place] [address] [phone] HDL Cholesterol 33 mg/dL Low > Or=46 Cholesterol/HDL Ratio 5.4 High < Or=5.0 LDL Chol,Calculated 100 mg/dL <130 23 Triglycerides 228 mg/dL High <150 Non-HDL Cholesterol 146 mg/dL 24 TSH & T4,Free 12/30/2016 [facility] TSH 9.12 mIU/L High 0.40-4.[address] [place] [address] [phone] T4,Free 0.9 ng/dL 0.8-1.8 Laboratory 12/30/2016 [facility] Vitamin 32 30-[address] D,25-Hydroxy,Total,Immunoassay NG/[place] [address] [phone] CBC W/ Diff 12/30/2016 [facility] WBC 10.7 3.8-10. & PLT [address] / [place] [address] L [phone] RBC 5.29 mill/L High 3.80-5.10 Hemoglobin 15.8 g/dL High 11.7-15.5 Hematocrit 47.2 % High 35.0-45.0 MCV 89.2 FL 80.0-100.0 MCH 29.8 pg 27.0-33.0 MCHC 33.4 g/dL 32.0-36.0 RDW 14.4 % 11.0-15.0 Platelet Count 293 thous/L 140-400 Platelet Sufficiency PENDING MPV 9.4 FL 7.5-12.5 Neutrophils,Absolute 7790 cells/L [phone] Bands,Absolute PENDING Metamyelocytes,Absolute PENDING Myelocytes,Absolute PENDING Promyelocytes,Absolute [...] [facility] Sodium 139 mmol/L 135-[address] [place] [address] [phone] Potassium 4.2 mmol/L 3.5-5.3 Chloride 106 mmol/L 98-110 Carbon Dioxide 20 mmol/L 20-31 Calcium 9.8 mg/dL 8.6-10.2 Glucose 106 mg/dL High 65-99 28 Urea Nitrogen 19 mg/dL 7-25 Creatinine 0.79 mg/dL 0.50-1.10 BUN/Creatinine Ratio 24.3 High 6-22 Egfr Non-Afr. Maltese 100 ML/MIN/1.73M2 > Or=60 Egfr 116 ML/MIN/1.73M2 > Or=60 Laboratory 09/22/2015 [facility] Rapid Strep Negative N Negative 29 test finding [address] [place] [address] [phone] Drug Tox 07/29/2015 [facility] Amphetamines NEGATIVE Nxraet=098 Monitoring [address] NG/ML Screen,[place] [address] [phone] Barbiturates NEGATIVE NG/ML Peopwu=779 Cocaine NEGATIVE NG/ML Ybchwl=607 Methadone Metabolite NEGATIVE NG/ML Dpkqra=802 Opiates NEGATIVE NG/ML Aeyhip=227 Oxycodone Screen NEGATIVE NG/ML Gxxkqm=203 CBC W/ Diff & PLT 06/23/2015 [facility] WBC 8.9 thous/L 3.8-10.[address] [place] [address] [phone] RBC 4.96 mill/L 3.80-5.10 Hemoglobin 14.3 g/dL 11.7-15.5 Hematocrit 43.4 % 35.0-45.0 MCV 87.5 FL 80.0-100.0 MCH 28.8 pg 27.0-33.0 MCHC 32.9 g/dL 32.0-36.0 RDW 13.2 % 11.0-15.0 Platelet Count 226 thous/L 140-400 Platelet Sufficiency PENDING MPV 10.6 FL 7.5-11.5 Neutrophils,Absolute 6950 cells/L [phone] Bands,Absolute PENDING Metamyelocytes,Absolute PENDING Myelocytes,Absolute PENDING Promyelocytes,Absolute [...] [facility] Sodium 136 mmol/L 135-146 [address] [place] [address] [phone] Potassium 4.0 mmol/L 3.5-5.3 Chloride 103 mmol/L 98-110 Carbon Dioxide 25 mmol/L 19-30 Calcium 9.9 mg/dL 8.6-10.2 Glucose 119 mg/dL High 65-99 32 Urea Nitrogen 12 mg/dL 7-25 Creatinine 0.67 mg/dL 0.50-1.10 BUN/Creatinine Ratio 17.9 6-22 Lipid Panel 06/23/2015 [facility] Cholesterol 194 mg/dL 125-[address] [place] [address] [phone] HDL Cholesterol 28 mg/dL Low > Or=46 Cholesterol/HDL Ratio 6.9 High < Or=5.0 LDL Chol,Calculated 139 mg/dL High <130 33 Triglycerides 136 mg/dL <150 Non-HDL Cholesterol 166 mg/dL High 34 TSH & T4,Free 06/23/2015 [facility] TSH 1.14 mIU/L 0.40-4.[address] [place] [address] [phone] T4,Free 1.0 ng/dL 0.8-1.8 Laboratory 06/23/2015 [facility] Vitamin 19 Low 30-[address] D,25-Hydroxy,Total,Immunoassay NG/ML finding [place], [place] [id number] [phone] Pain MGMT 05/27/2015 [facility] Pain Medication TRAMAD Profile [address] OL W/[place] [address] ion Urine [phone] Pain Medication PENDING Pain Medication PENDING Pain Medication PENDING Pain Medication PENDING Pain Medication PENDING Pain Medication PENDING Pain Medication PENDING Pain Medication PENDING Pain Medication PENDING Amphetamine Class NEGATIVE NG/ML Gmldwc=729 Amphetamine PENDING Methamphetamine PENDING Barbiturate Class NEGATIVE NG/ML Auyiil=379 Amobarbital PENDING Butalbital PENDING Pentobarbital PENDING Phenobarbital PENDING Secobarbital PENDING Benzodiazepine Class POSITIVE NG/ML Abnormal Lmddvf=297 37 Oxazepam NEGATIVE NG/ML Cutoff=50 Lorazepam NEGATIVE NG/ML Cutoff=50 Hydroxyalprazolam >2000 NG/ML Abnormal Cutoff=25 38 Hydroxymidazolam NEGATIVE NG/ML Cutoff=50 Hydroxytriazolam NEGATIVE NG/ML Cutoff=50 Nordiazepam NEGATIVE NG/ML Cutoff=50 Temazepam NEGATIVE NG/ML Cutoff=50 Aminoclonazepam NEGATIVE NG/ML Cutoff=25 Hydroxyethylflurazepam NEGATIVE NG/ML Cutoff=50 Cannabinoids Class NEGATIVE NG/ML Cutoff=20 Carboxy THC PENDING Cocaine Class NEGATIVE NG/ML Ncwaoz=310 Cocaine MTB PENDING Methadone Metabolite Class NEGATIVE NG/ML Jdazvw=558 Methadone PENDING Methadone Metabolite PENDING Opiate Screen NEGATIVE NG/ML Jqfkfn=241 Codeine PENDING Morphine PENDING Hydrocodone PENDING Hydromorphone PENDING Norhydrocodone PENDING Oxycodone Screen NEGATIVE NG/ML Vgzqcy=717 Oxycodone PENDING Oxymorphone PENDING Noroxycodone PENDING Phencyclidine Class NEGATIVE NG/ML Cutoff=25 Phencyclidine PENDING Creatinine 213.8 mg/dL >/=20 Specific [place] 1.029 >/=1.003 PH 5.39 4.5-8.9 General Oxidants NEGATIVE g/mL Djuwmt=089 Comments PENDING Ledy Gibbs 06/14/2014 [facility] Ebv Capsid Positive N Negative Comprehensive [address] [place] [address] [phone] Ebv Capsid Ag IgM Ab Negative N Negative [facility]-Gibbs Nuclear Antigen Positive N Negative Ledy-Gibbs Virus Interp See Comment N 39 Laboratory test 06/14/2014 [facility] [email or web address] Monospot Negative N Negative [address] [place] [address] [phone] Celiac Disease 01/15/2013 [facility] Immunoglobulin A 259 mg/dL 91-414 Comp AB Profile [address] [place] [address] [phone] Antigliadin Abs, IgG 6 units 0-19 41 Antigliadin Abs, IgA 3 units 0-19 42 Endomysial IgA Antibody Negative Negative t-Transglutaminase IgA <2 U/mL 0-3 43 t-Transglutaminase IgG 2 U/mL 0-5 44 Laboratory test 01/15/2013 [facility] Thyroid Stim 3.66 uIU/mL 0.49-4.[address] [place] [place] [address] [phone] Free T4 1.00 ng/dL 0.71-1.85 Laboratory test 01/15/2013 [facility] Direct LDL 110 mg/dL High 0-[address] [place] [place] [address] [phone] Basic Metabolic 01/15/2013 [facility] Glucose 96 mg/ dL 76-[address] [place] [address] [phone] BUN 13 mg/dL 5-23 Creatinine 0.8 mg/dL 0.5-1.4 Glom Filtration Rate, Estimate >60 mL/min >60 If >60 mL/min >60 45 BUN/Creat 16.2 ratio Sodium 139 mmol/L 136-145 Potassium 4.3 mmol/L 3.5-5.1 Chloride 105 mmol/L 98-107 Carbon Dioxide 24 mEq/L 18-29 Anion Gap 14 mEq/L 8-16 Calcium 8.9 mg/dL 8.5-10.1 CBC W/ Diff & 01/15/2013 [facility] White Blood 8.3 K /uL 3.1-10.[address] [place] [address] [phone] Red Blood Count 4.84 M/uL 3.90-5.40 Hemoglobin [...] % 40.4-72.8 Lymph % 29.0 % 17.0-46.1 Tw[place]gs % 6.1 % 4.3-13.2 Eo% 2.8 % 0.0-6.6 Bas% 0.4 % 0.0-1.1 Neut# 5.13 K/uL 1.0-7.0 Lymph # 2.41 K/uL 0.8-3.4 Twiggs # 0.51 K/uL 0.3-0.9 Eos # 0.23 [...] 11 PSYCH SERVICES 12 Performed at: - [address] [id number] Certified Professional Coder: Boston Moulton MD, Phone: [phone] 13 > 100,000 CFU/mL 14 EVAL, CUT [...] Vit D, (D2,D3),LC/MS/MS is recommended: Order code 86065 (patients >2 yrs). 27 Relative blood cell counts (%) should be compared with absolute cell counts (cells/mcL). Relative counts may not be clinically meaningful if the absolute count of one or more cell type is decreased. Reference ranges for relative cell counts derived from: A Manual of Laboratory and Diagnostics Tests, 9th Ed, [employer] Frost, 2015. Pediatric Reference Intervals, 7th Ed, [employer], 2011. 28 GLUCOSE REFERENCE RANGE BASED ON FASTING SPECIMEN. 29 Computer Publisher: [id number] VINAY YEE Due to the increased sensitivity [...] Frost, 2015. Pediatric Reference Intervals, 7th Ed, [employer], 2011. 32 GLUCOSE REFERENCE RANGE BASED [...] Vit D, (D2,D3),LC/MS/MS is recommended: Order code 88308 (patients >2 yrs). 37 Inconsistent Results 38 [...] primary infection with EBV. Test Performed by: [place] [id number] Core Measures Abstractor: Danie Cummins M.D. 40 Y 41 Negative [...] Positive >9 Performed at: RN - [facility] [address] [id number] Certified Professional Coder: Ashley Hammond MD, Phone: [phone] Note: Persistent reduction for 3 months [...] M.D. 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 disorder Office Visit 09/22/2016 10:45a Main Office Elzbieta Gutierrez M54.5 Low back pain M.D. 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 Office Visit 12/09/2015 2:15p Main Office Andrez Canela02.1 Encounter for M.D. pre-employment examination Z23 Encounter [...]
[2018-10-16 19:54] VITALS: BP 126/90
--- NOTE | 2018-10-16 20:15 | UC ---
Hand/Wrist HPI - HPI Summary HPI Summary: 33 yo female with a 3 week hx of bilateral hand edema/swollen and painful fingers finger tips numb bilat elbow pain no cp or sob no lower ext edema - History Of Current Complaint Chief Complaint: UCUpperExtremity Stated Complaint: BILATERAL HAND ISSUE Time Seen by Provider: 10/16/18 19:45 Hx Obtained From: Patient Hx Last Menstrual Period: 08/09/18 Onset/Duration: Gradual Onset, Lasting Weeks Severity Initially: Mild Severity Currently: Severe Pain Intensity: 8 Pain Scale Used: 0-10 Numeric Character Of Pain: Aching Aggravating Factor(s): Movement Alleviating Factor(s): Nothing Associated Signs And Symptoms: Positive: Negative - Allergies/Home Medications Allergies/Adverse Reactions: Allergies Allergy/AdvReac Type Severity Reaction Status Date / Time amoxicillin Allergy Hives Verified 10/21/17 12:24 celecoxib [From Celebrex] Allergy Hives Verified 10/21/17 12:24 cyclobenzaprine Allergy Hives Verified 10/21/17 12:24 Latex, Natural Rubber Allergy Hives Verified 10/21/17 12:24 Home Medications: Home Medications Sertraline HCl [Zoloft] 50 mg PO DAILY 10/16/18 [History Confirmed 10/16/18] cloNIDine TAB* [Catapres 0.1 MG TAB*] 0.1 mg PO DAILY 10/16/18 [History Confirmed 10/16/18] PMH/Surg Hx/FS Hx/Imm Hx Previously Healthy: Yes Endocrine History: Thyroid Disease, Hypothyroidism - Surgical History Surgical History: None Surgery Procedure, Year, and Place: Spinal block 07/2014 - Family History Known Family History: Positive: Hypertension Negative: Blood Disorder - Social History Alcohol Use: None Substance Use Type: None Smoking Status (MU): Former Smoker Type: Cigarettes Amount Used/How Often: 3 CIGS A DAY Length of Time of Smoking/Using Tobacco: 2 yrs Have You Smoked in the Last Year: Yes When Did the Patient Quit Smoking/Using Tobacco: 04/09 Household Exposure Type: Cigarettes - Immunization History Most Recent Influenza Vaccination: 03/10/17 Review of Systems All Other Systems Reviewed And Are Negative: Yes Constitutional: Positive: Negative Skin: Positive: Negative Eyes: Positive: Negative ENT: Positive: Negative Respiratory: Positive: Negative Cardiovascular: Positive: Negative Gastrointestinal: Positive: Negative Genitourinary: Positive: Negative Motor: Positive: Negative Neurovascular: Positive: Negative Musculoskeletal: Positive: Arthralgia, Edema - hands, Myalgia Neurological: Positive: Negative Psychological: Positive: Negative Physical Exam Vital Signs: Initial Vital Signs Temp 98.6 F 10/16/18 19:47 Pulse 97 10/16/18 19:47 Resp 16 10/16/18 19:47 BP 126/90 10/16/18 19:47 Pulse Ox 100 10/16/18 19:47 Hand/Wrist Course/Dx - Course Course Of Treatment: UA + protein - Differential Dx/Diagnosis Provider Diagnosis: Edema, Hand arthropathy Discharge - Sign-Out/Discharge Documenting (check all that apply): Patient Departure All imaging exams completed and their final reports reviewed: No Studies - Discharge Plan Condition: Stable Disposition: HOME Patient Education Materials: Arthralgia (ED), Edema (ED) Referrals: Elzbieta Gutierrez MD [Primary Care Provider] - As Soon As Possible Additional Instructions: many blood tests pending this needs further investigation see your MD first available appt - Billing Disposition and Condition Condition: STABLE Disposition: Home
[2018-10-17 11:35] LABS: ABS Basophils 0.1 10^3/ul (0-0.2); ABS Eosinophils 0.2 10^3/ul (0-0.6); ABS Lymphocytes 2.5 10^3/ul (1.0-4.8); ABS Monocytes 0.5 10^3/ul (0-0.8); ABS Neutrophils 8.2 10^3/ul (1.5-7.7); ABS Nucleated RBC 0 10^3/ul; Eosinophil % 1.8 %; Hematocrit 42 % (33-41); Lymphocyte % 21.4 %; Mean Corpuscular HGB Conc 34 g/dL (31-36); Mean Corpuscular Hemoglobin 29 pg (27-31); Mean Corpuscular Volume 87 fL (80-97); Mean Platelet Volume 9.9 fL (7.4-10.4); Nucleated Red Blood Cells % 0.3; Platelet Count 283 10^3/uL (150-450); Red Blood Count 4.79 10^6 /uL (3.70-4.87); Red Cell Distribution Width 13 % (10.5-15); White Blood Count 11.5 10^3/uL (3.5-10.8)
[2018-10-17 11:51] LABS: Albumin 4.6 g/dL (3.2-5.2); Albumin/Globulin Ratio 1.5 (1-3); BUN/Creatinine Ratio 20.8 (8-20); Calcium 9.7 mg/dL (8.6-10.3); EGFR African American 104.5 (>60); EGFR Non-African American 86.3 (>60); Total Bilirubin 0.5 mg/dL (0.2-1.0); Total Protein 7.6 g/dL (6.4-8.9)
[2018-10-17 11:59] LABS: TSH (Thyroid Stimulating Horm) 4.5 mcIU/mL (0.34-5.60)
[2018-10-17 12:01] LABS: Free T3 2.9 pg/mL (2.5-3.9)
[2018-10-17 13:01] LABS: Erythrocyte Sed Rate 10 mm/Hr (0-19)
--- NOTE | 2018-10-18 07:11 | UC ---
- Progress Note Progress Note: CBC with dif non concerning Sed rate 10 CMP wnl no change josej 10/18 Course/Dx - Diagnoses Provider Diagnoses: Edema, Hand arthropathy Discharge - Sign-Out/Discharge Documenting (check all that apply): Post-Discharge Follow Up All imaging exams completed and their final reports reviewed: No Studies - Discharge Plan Condition: Stable Disposition: HOME Patient Education Materials: Arthralgia (ED), Edema (ED) Referrals: Elzbieta Gutierrez MD [Primary Care Provider] - As Soon As Possible Additional Instructions: many blood tests pending this needs further investigation see your MD first available appt - Billing Disposition and Condition Condition: STABLE Disposition: Home
--- NOTE | 2018-10-19 07:07 | UC ---
- Progress Note Progress Note: Lyme neg urine final culture neg No change josej 10/19/18 Course/Dx - Diagnoses Provider Diagnoses: Edema, Hand arthropathy Discharge - Sign-Out/Discharge Documenting (check all that apply): Post-Discharge Follow Up All imaging exams completed and their final reports reviewed: No Studies - Discharge Plan Condition: Stable Disposition: HOME Patient Education Materials: Arthralgia (ED), Edema (ED) Referrals: Elzbieta Gutierrez MD [Primary Care Provider] - As Soon As Possible Additional Instructions: many blood tests pending this needs further investigation see your MD first available appt - Billing Disposition and Condition Condition: STABLE Disposition: Home
== END 2018-10-16 21:06 | disposition home or self-care (01) ==
LOC: UCCORT 17:39
DX: R60.0 Localized edema (principal); M12.841 Other specific arthropathies, not elsewhere classified, right hand; M12.842 Other specific arthropathies, not elsewhere classified, left hand; Z87.891 Personal history of nicotine dependence; Z88.0 Allergy status to penicillin; Z91.040 Latex allergy status; Z88.8 Allergy status to other drugs, medicaments and biological substances
CPT/HCPCS: 36415; 80053; 81003; 84443; 84481; 85025; 85652; 86038; 86618; 87086; 99211; G0463